=== PATIENT | female | born 1970 | race Caucasian/White ===

== ENCOUNTER 2017-04-13 22:12 | Emergency (ER) | payer OTHER ==
[~2017-04-13] VITALS: Ht 154.9 cm; Wt 54.5 kg
[2017-04-13] MEDS ORDERED: ASPIRIN 325 MG TAB PO STA (22:17)
[2017-04-13 22:23] VITALS: Ht 154.9 cm; Wt 54.5 kg
[2017-04-13] MEDS ORDERED: LORAZEPAM 2 MG INJ IV ONE (22:30)
[2017-04-13] MEDS ORDERED: SOD CHLORIDE 0.9% 1,000 ML IV ONE (23:00)
[2017-04-13 23:08] LABS: BASOPHILS % 0.4 % (0.0-2.0); EOSINOPHILS % 0.3 % (0.0-7.0); HEMATOCRIT 35.7 % (37.0-47.0); HEMOGLOBIN 12.8 g/dl (12.0-16.0); LYMPHOCYTES # 2.3 10^3/ul (0.8-2.9); LYMPHOCYTES % 25.1 % (15.0-51.0); MEAN CORPUSCULAR HEMOGLOBIN 31.1 pg (29.0-33.0); MEAN CORPUSCULAR HGB CONC 35.9 g/dl (32.0-37.0); MEAN CORPUSCULAR VOLUME 86.9 fl (82.0-101.0); MEAN PLATELET VOLUME 10.1 fl (7.4-10.4); MONOCYTE # 0.4 10^3/ul (0.3-0.9); MONOCYTES % 4.7 % (0.0-11.0); NEUTROPHIL # 6.2 10^3/ul (1.6-7.5); NEUTROPHILS % 69.1 % (39.0-77.0); PLATELET COUNT 333 10^3/UL (140-415); RED BLOOD COUNT 4.11 10^6/ul (4.20-5.40); RED CELL DISTRIBUTION WIDTH 13.4 % (11.5-14.5)
--- NOTE | 2017-04-13 23:09 | ERD ---
ER Documentation Chief Complaint Chief Complaint JUNAID RA89,anxiety,chest pressure pain since yesterday HPI This 46-year-old female was brought in by ambulance after family because the patient's been experiencing sharp epigastric and lower substernal chest pain that does not radiate with shortness of breath, anxiety, lightheadedness. Heart rate was 155 in the field. She has a history of anxiety. Denies fever and chills. Denies any trauma. Does have some mild nausea without vomiting. That she has been under a lot of pressure lately. Family states that she has not been eating much at all today think she may be dehydrated. ROS All systems reviewed and are negative except as per history of present illness. Medications Home Meds Active Scripts Alprazolam* (Xanax*) 0.5 Mg Tab, 0.5 MG PO Q8H Y for severe anxiety, #8 TAB Prov:YON MCGUIRE DO 04/14/17 Hydroxyzine Pamoate* (Vistaril*) 25 Mg Capsule, 25 MG PO Q8 for ANXIETY, #14 CAP Prov:YON MCGUIRE DO 04/14/17 Reported Medications [None] No Conflict Check 04/04/12 Allergies Allergies: Coded Allergies: No Known Allergies (Verified Allergy, Unknown, 04/04/12) PMhx/Soc History of Surgery: No (GALL BLADDER) Anesthesia Reaction: No Hx Respiratory Disorders: No Hx Cardiac Disorders: No Hx Psychiatric Problems: No Hx Miscellaneous Medical Probl: No Hx Alcohol Use: No Hx Substance Use: No Hx Tobacco Use: No Physical Exam Vitals Vital Signs Date Time Temp Pulse Resp B/P Pulse Ox O2 Delivery O2 Flow Rate FiO2 04/13/17 22:23 97.9 117 18 136/86 100 Physical Exam Const: [] Moderate distress, appears very uncomfortable, mildly diaphoretic Head: Atraumatic Eyes: Normal Conjunctiva ENT: Normal External Ears, Nose and Mouth. Neck: Full range of motion..~ No meningismus. Resp: Clear to auscultation bilaterally Cardio: Regular tachycardia, no murmurs Abd: Soft, non tender, non distended. Normal bowel sounds Skin: No petechiae or rashes Back: No midline or flank tenderness Ext: No cyanosis, or edema Neur: Awake and alert and oriented 3, no focal deficits Psych: Appears very anxious. Result Diagram: 04/13/17 2258 04/13/17 2258 Results 24 hrs Laboratory Tests Test 04/13/17 22:58 White Blood Count 9.010^3/ul Red Blood Count 4.1110^6/ul Hemoglobin 12.8g/dl Hematocrit 35.7% Mean Corpuscular Volume 86.9fl Mean Corpuscular Hemoglobin 31.1pg Mean Corpuscular Hemoglobin Concent 35.9g/dl Red Cell Distribution Width 13.4% Platelet Count 21448^3/UL Mean Platelet Volume 10.1fl Neutrophils % 69.1% Lymphocytes % 25.1% Monocytes % 4.7% Eosinophils % 0.3% Basophils % 0.4% Nucleated Red Blood Cells % 0.0/100WBC Neutrophils # 6.210^3/ul Lymphocytes # 2.310^3/ul Monocytes # 0.410^3/ul Eosinophils # 0.010^3/ul Basophils # 0.010^3/ul Nucleated Red Blood Cells # 0.010^3/ul Sodium Level 141mmol/L Potassium Level 3.1mmol/L Chloride Level 104mmol/L Carbon Dioxide Level 20mmol/L Anion Gap 20 Blood Urea Nitrogen 7mg/dl Creatinine 0.57mg/dl Glucose Level 209mg/dl Calcium Level 10.2mg/dl Troponin I < 0.012ng/ml Current Medications Medications (Trade) Dose Ordered Sig/Girish Route PRN Reason Start Time Stop Time Status Last Admin Dose Admin Aspirin (Aspirin) 325 mg ONCE STAT PO 04/13/17 22:17 04/13/17 22:18 DC 04/13/17 22:50 Lorazepam 1 mg 1 mg ONCE ONCE IV 04/13/17 22:30 04/13/17 22:31 DC 04/13/17 22:50 Sodium Chloride (NS) 1,000 ml @ 1,000 mls/hr Q1H ONCE IV 04/13/17 23:00 04/13/17 23:59 DC 04/13/17 22:50 Potassium Chloride (Klor-Con 20) 40 meq ONCE STAT PO 04/14/17 00:27 04/14/17 00:28 UNV Procedures/MDM Atypical chest pain 46-year-old female. History of anxiety. Also had dyspnea and nausea. All symptoms are resolved with 1 mg of Ativan IV. Is also given 3 and 25 mg aspirin a liter of normal saline. Was markedly tachycardic on arrival with a subside with treatment. Nonischemic EKG and negative troponin the day after the pain began. I have low suspicion for acute coronary syndrome , pulmonary embolism, aortic dissection. Anxiety does seem more likely. Potassium level is low and she was given a K-Dur 40 milliequivalents tablet in the emergency room per I am going to discharge with primary care follow-up in 233 days and instructions to obtain an outpatient echocardiogram. Discharging with Vistaril for anxiety and a few Xanax tabs for severe anxiety. EKG interpretation: Normal sinus rhythm rate of 98, normal axis, right bundle branch block, no ST or T-wave changes concerning for acute ischemia. Abnormal EKG residential monitor interpretation: Initial sinus tachycardia in the 120s and 30s followed by normal sinus rhythm. No other arrhythmias Chest x-ray interpretation: I see no acute process. I see no widened mediastinum, no infiltrates, no palmar edema, or pneumothorax, no fractures Departure Diagnosis: Primary Impression: Chest pain Additional Impressions: Anxiety Hypokalemia Condition: Stable YON MCGUIRE DO Apr 13, 2017 23:09
[2017-04-13 23:37] LABS: ANION GAP 20 (8-16); BLOOD UREA NITROGEN 7 mg/dl (7-20); CALCIUM 10.2 mg/dl (8.4-10.2); CARBON DIOXIDE 20 mmol/L (21-31); CHLORIDE 104 mmol/L (97-110); CREATININE 0.57 mg/dl (0.44-1.00); GLUCOSE 209 mg/dl (70-220); POTASSIUM 3.1 mmol/L (3.5-5.1); SODIUM 141 mmol/L (135-144)
[2017-04-13 23:52] LABS: TROPONIN-I < 0.012 ng/ml (0.00-0.12)
--- NOTE | 2017-04-14 00:16 | RADRPT ---
PROCEDURE: XR Chest. CLINICAL INDICATION: Chest pain TECHNIQUE: Single frontal view of the chest. COMPARISON: None. FINDINGS: The cardiomediastinal silhouette is within normal limits. The lungs are clear. No signs of pleural f luid or pneumothorax are seen. The osseous structures and soft tissues are unremarkable. IMPRESSION: No evidence for active cardiopulmonary disease. RPTAT: [facility] Physician Lon Date Time Electronically viewed and signed by Physician Lon on 04/14/2017 00:15 RS/
[2017-04-14] MEDS ORDERED: POTASSIUM CHLORIDE (SR) 20 MEQ TAB PO STA (00:27)
[2017-04-14] MEDS ORDERED: ALPR0.5T PO (00:29)
[2017-04-14] MEDS ORDERED: HYDR25CA PO (00:29)
[2017-04-14 00:30] VITALS: BP 111/69; PULSE 88; RESP 16; TEMP 97.9
== END 2017-04-14 01:16 | disposition home or self-care (01) ==
LOC: E/R 22:12
DX: R07.89 Other chest pain (principal); F41.9 Anxiety disorder, unspecified; E87.6 Hypokalemia
CPT/HCPCS: 36415; 71010; 80048; 84484; 85025; 93005; 96374; J2060; J7030; Z7502